=== PATIENT | female | born 1980 | race Caucasian/White ===

== ENCOUNTER 2022-09-01 23:07 | Emergency (ER) | payer SELFPAY ==
[2022-09-01 23:13] VITALS: BP 169/111; PULSE 100; RESP 18; TEMP 36.1; O2SAT 98
--- NOTE | 2022-09-01 23:19 | ED.GENADULT ---
HPI - General Adult General Chief complaint: Wound/Laceration Stated complaint: Left index finger lac Time Seen by Provider: 09/01/22 23:18 Source: patient Mode of arrival: ambulatory Limitations: no limitations History of Present Illness HPI narrative: This is a 42-year-old female who presents to the ED with chief complaint of a left index finger laceration occurring just prior to arrival. Patient states she accidentally cut the finger with a knife while cutting boxes. She missed the box and went straight into her palmar left index finger. She reports a lot of bleeding but was able to control the bleeding initially. While she is here in the room, the bleeding is restarted. Denies any numbness or weakness. Denies any further site of pain or injury Related Data Allergies Allergy/AdvReac Type Severity Reaction Status Date / Time penicillin G Allergy RASH Verified 09/01/22 23:07 venom-wasp Allergy Other Verified 09/01/22 23:07 Exam Narrative: GENERAL: Well-appearing, well-nourished, and in no acute distress. HEAD: Normocephalic, atraumatic. EYES: PERRLA and EOMI. ENT: Nares clear, no rhinorrhea or epistaxis. Mucous membranes moist. Oropharynx without tonsillar hypertrophy exudate or other lesions. NECK: Supple. No adenopathy or masses. CHEST: No respiratory distress. Clear to auscultation. No wheezes rales or rhonchi HEART: Regular rate and rhythm. No murmur heard. Normal peripheral pulses. ABDOMEN: Soft, nontender, nondistended, normal active bowel sounds. MSK: Normal range of motion. No edema. SKIN: There is a 3 cm laceration to the palm R index finger. Active bleeding. Linear and crosses the DIP joint. Neurovascularly intact distally. NEURO: Alert and oriented x3. No focal deficits. PSYCH: Normal mood and affect. Course Vital Signs Vital signs: Vital Signs Temperature 97.0 F L 09/01/22 23:13 Pulse Rate 100 09/01/22 23:13 Respiratory Rate 18 09/01/22 23:13 Blood Pressure 169/111 H 09/01/22 23:13 Pulse Oximetry 98 09/01/22 23:13 Oxygen Delivery Room Air 09/01/22 23:13 Temperature 97.0 F L 09/01/22 23:13 Pulse Rate 100 09/01/22 23:13 Respiratory Rate 18 09/01/22 23:13 Blood Pressure 169/111 H 09/01/22 23:13 Pulse Oximetry 98 09/01/22 23:13 Oxygen Delivery Room Air 09/01/22 23:13 Procedures Laceration Laceration 1: Date: 09/02/22 Time: 00:01 Site: hand (index finger) Side (If applicable): left Size (cm): 3 Description: linear Depth: simple, single layer Local Anesthetic: lidocaine 1% Amount of anesthesia used (mL): 2 (digital block) Pre-repair: wound explored, irrigated extensively and deep structures intact ====== Skin Level ====== Skin layer closed with: nylon Size (cm): 5-0 Number of sutures: 5 ====== Subcutaneous Layer ====== ====== Muscle Layer ====== ====== Tendon Layer ====== Dressing: non adherent Medical Decision Making MDM Narrative Medical decision making narrative: This is a 42-year-old female who presents to the ED with chief complaint of left index finger palmar laceration occurring just prior to arrival. Accidentally cut with a serrated knife. Vitals are normal. Bleeding controlled. The wound was well cleaned and irrigated here in the ED. It is sutured with Ethilon sutures. Dressed with a nonadherent pad and Coban. No complications. Antibiotics given. Discharged in stable condition. Return precautions and laceration instructions given. Patient is comfortable following up with her PCP. Vital Signs Vital Signs: Vital Signs Temperature 97.0 F L 09/01/22 23:13 Pulse Rate 100 09/01/22 23:13 Respiratory Rate 18 09/01/22 23:13 Blood Pressure 169/111 H 09/01/22 23:13 Pulse Oximetry 98 09/01/22 23:13 Oxygen Delivery Room Air 09/01/22 23:13 Temperature 97.0 F L 09/01/22 23:13 Pulse Rate 100 0
== END 2022-09-02 00:25 | disposition home or self-care (01) ==
PROVIDERS: Emergency Provider Physician Assistant
DX: S61.211A Laceration without foreign body of left index finger without damage to nail, initial encounter (principal); W26.0XXA Contact with knife, initial encounter
CPT/HCPCS: 12001; 99283